=== PATIENT | female | born 1940 | race Caucasian/White ===

== ENCOUNTER 2018-09-09 12:01 | Inpatient (IN) ==
[2018-09-09 12:53] LABS: Apearance,Urine CLEAR (Clear); Bilirubin,Urine Negative (Negative); Blood, Urine Negative (Negative); Glucose,Urine (UA) Negative (Negative); Ketones,Urine Negative (Negative); Nitrite,Urine Negative (Negative); Protein,Urine Negative; RBC,Urine 1 /HPF (0-4); Squamous Epithelial Cell,Urine Occasional /HPF (0-10); Urine Color Yellow (Yellow); Urine Specific Gravity 1.013 (1.001-1.035); Urine Urobilinogen < 2.0 EU/DL (0.2-1.0)
[2018-09-09 13:06] LABS: Basophils % 0.4 % (0.0-0.8); Eosinophils # 0.1 10*3/uL (0.0-0.87); Eosinophils % 0.5 % (0.00-10.9); Hematocrit 37.5 VOL% (35.7-47.0); Hemoglobin 11.9 GM/DL (12.0-16.0); Immature Granulocytes % 0.4 %; Immature Granulocytes Absolute 0.04 #; Lymphocytes # 1.5 10*3/uL (1.4-4.0); Lymphocytes % 15.6 % (21.3-54.2); Mean Corpuscular HGB Conc 31.7 GM/DL (32-36); Mean Corpuscular Hemoglobin 28 PG (27-34); Mean Corpuscular Volume 87.8 FL (87-102); Mean Platelet Volume 11.9 FL (9.6-12.0); Monocytes # 0.5 10*3/uL (0.11-0.8); Monocytes % 5.2 % (1.7-12.7); Neutrophils # 7.7 10*3/uL (1.4-7.4); Neutrophils % 77.9 % (38.7-73.9); Platelet Count 163 T/CUMM (130-400); Red Blood Count 4.27 MC/CUMM (3.8-5.5); White Blood Count 9.9 T/CUMM (4-12)
[2018-09-09 13:13] LABS: INR 0.9
[2018-09-09 13:14] LABS: Barbiturates Screen,Urine Negative (Negative); Benzodiazepines Screen,Urine Negative (Negative); Cannabinoid Screen,Urine Negative (Negative); Opiate Screen,Urine Negative (Negative); Phencyclidine Screen,Urine Negative (Negative)
[2018-09-09 13:31] LABS: Alanine Aminotransferase 15 U/L (13-56); Albumin 3.6 G/DL (3.4-5.0); Alkaline Phosphatase 49 U/L (45-117); Aspartate Amino Transferase 17 U/L (0-37); Blood Urea Nitrogen 20 MG/DL (7-18); Calcium 8.8 MG/DL (8.5-10.1); Glucose 104 MG/DL (74-106); Osmolality,Calculated 279.5 MOS/KG (273-304); Sodium 139 MMOL/L (136-145); Total Protein 7.2 G/DL (6.4-8.3); Troponin I < 0.015 NG/ML (0.00-0.045)
[2018-09-09 14:49] LABS: Free T4 (Free Thyroxine) 1.07 NG/DL (0.76-1.46); Thyroid Stimulating Hormone 1.58 uIU/ml (0.358-3.74)
[2018-09-09] MEDS ORDERED: DOCUSATE SODIUM 100 MG CAPSULE PO PRN (15:05)
[2018-09-09] MEDS ORDERED: ZALEPLON 5 MG CAPSULE PO PRN (15:05)
[2018-09-09] MEDS ORDERED: ONDANSETRON 4 MG/2 ML VIAL IV PRN (15:05)
[2018-09-09] MEDS ORDERED: MAGNESIUM SULF RIDER 2 GM in PREMIX 1 EACH IV PRN ×2 (15:05→15:40)
[2018-09-09] MEDS ORDERED: MAGNESIUM SULF RIDER 4 GM in PREMIX 1 EACH IV PRN ×2 (15:05→15:40)
[2018-09-09] MEDS ORDERED: ACETAMINOPHEN 325 MG TABLET PO PRN (15:05)
[2018-09-09] MEDS ORDERED: diphenhydrAMINE CAP 25 MG CAPSULE PO PRN (15:05)
[2018-09-09] MEDS ORDERED: BISACODYL 5 MG TABLET PO PRN (15:05)
[2018-09-09] MEDS ORDERED: ENOXAPARIN 40 MG/0.4 ML SYRINGE SUBCUT ONE (15:32)
[2018-09-09] MEDS: SODIUM CHLORIDE 0.45% 1,000 ML IV SCH (17:29)
[2018-09-10] MEDS: SODIUM CHLORIDE 0.45% 1,000 ML IV SCH ×3 (00:56→18:59)
[2018-09-10 05:25] LABS: Basophils % 0.4 % (0.0-0.8); Eosinophils # 0.2 10*3/uL (0.0-0.87); Eosinophils % 2.1 % (0.00-10.9); Hematocrit 37.7 VOL% (35.7-47.0); Hemoglobin 11.9 GM/DL (12.0-16.0); Immature Granulocytes % 0.4 %; Immature Granulocytes Absolute 0.03 #; Lymphocytes # 3.7 10*3/uL (1.4-4.0); Lymphocytes % 44.4 % (21.3-54.2); Mean Corpuscular HGB Conc 31.6 GM/DL (32-36); Mean Corpuscular Hemoglobin 28 PG (27-34); Mean Corpuscular Volume 88.3 FL (87-102); Mean Platelet Volume 12.3 FL (9.6-12.0); Monocytes # 0.5 10*3/uL (0.11-0.8); Monocytes % 6.6 % (1.7-12.7); Neutrophils # 3.8 10*3/uL (1.4-7.4); Neutrophils % 46.1 % (38.7-73.9); Platelet Count 174 T/CUMM (130-400); Red Blood Count 4.27 MC/CUMM (3.8-5.5); Red Cell Distribution Width 13.2 % (9.3-17.3); White Blood Count 8.2 T/CUMM (4-12)
[2018-09-10 05:43] LABS: Albumin 3.5 G/DL (3.4-5.0); Calcium 8.8 MG/DL (8.5-10.1); Osmolality,Calculated 278.4 MOS/KG (273-304); Potassium 3.9 MMOL/L (3.5-5.1); Total Protein 7.1 G/DL (6.4-8.3)
[2018-09-10] MEDS: LEVOTHYROXINE 50 MCG TABLET PO SCH ×2 (06:40→10:07)
[2018-09-10] MEDS ORDERED: ceFAZolin 1,000 MG in SYRINGE 1 EACH IV ONE (08:01)
[2018-09-10] MEDS ORDERED: ceFAZolin 1,000 MG VIAL IRRIG ONE (08:01)
[2018-09-10] MEDS: ESTRADIOL 1 MG TABLET PO SCH (10:06)
[2018-09-10] MEDS: LISINOPRIL 10 MG TABLET PO SCH (10:07)
[2018-09-10] MEDS: PANTOPRAZOLE 40 MG TABLET PO SCH (10:07)
[2018-09-10] MEDS: CHOLECALCIFEROL 1,000 UNIT TABLET PO SCH (10:07)
[2018-09-10] MEDS ORDERED: diphenhydrAMINE CAP 25 MG CAPSULE PO ONE (15:00)
[2018-09-10] MEDS ORDERED: DIAZEPAM 5 MG TABLET PO ONE (15:00)
[2018-09-10] MEDS ORDERED: MAGNESIUM HYDROXIDE SUSP 30 ML UDCUP PO PRN (15:24)
[2018-09-10] MEDS ORDERED: HEPARIN/NACL 0.9% 2 UNITS/ML 500 ML IV ONE ×2 (15:56→16:03)
[2018-09-10] MEDS ORDERED: LIDOCAINE 1%/EPI INJ 20 ML VIAL ONE (15:56)
[2018-09-10] MEDS ORDERED: ceFAZolin 1,000 MG VIAL ONE (16:01)
[2018-09-10] MEDS ORDERED: MIDAZOLAM 2 MG/2 ML VIAL ONE (16:05)
[2018-09-10] MEDS ORDERED: fentaNYL 100 MCG/2 ML VIAL ONE (16:05)
[2018-09-11] MEDS: SODIUM CHLORIDE 0.45% 1,000 ML IV SCH ×2 (03:00→07:56)
[2018-09-11 04:30] LABS: Basophils % 0.4 % (0.0-0.8); Eosinophils # 0.2 10*3/uL (0.0-0.87); Hematocrit 31.6 VOL% (35.7-47.0); Hemoglobin 9.9 GM/DL (12.0-16.0); Immature Granulocytes % 0.4 %; Immature Granulocytes Absolute 0.03 #; Lymphocytes # 2.3 10*3/uL (1.4-4.0); Lymphocytes % 27.2 % (21.3-54.2); Mean Corpuscular HGB Conc 31.3 GM/DL (32-36); Mean Corpuscular Hemoglobin 28 PG (27-34); Mean Corpuscular Volume 88.3 FL (87-102); Mean Platelet Volume 12.2 FL (9.6-12.0); Monocytes # 0.6 10*3/uL (0.11-0.8); Monocytes % 6.7 % (1.7-12.7); Neutrophils # 5.4 10*3/uL (1.4-7.4); Neutrophils % 63.3 % (38.7-73.9); Platelet Count 132 T/CUMM (130-400); Red Blood Count 3.58 MC/CUMM (3.8-5.5); Red Cell Distribution Width 12.9 % (9.3-17.3); White Blood Count 8.5 T/CUMM (4-12)
[2018-09-11 04:37] LABS: Calcium 8.1 MG/DL (8.5-10.1); Osmolality,Calculated 280.1 MOS/KG (273-304); Potassium 3.7 MMOL/L (3.5-5.1)
[2018-09-11 04:38] LABS: Calcium 7.7 MG/DL (8.5-10.1); Osmolality,Calculated 278.3 MOS/KG (273-304); Potassium 3.6 MMOL/L (3.5-5.1)
[2018-09-11] MEDS: LEVOTHYROXINE 50 MCG TABLET PO SCH (06:35)
[2018-09-11] MEDS: LISINOPRIL 10 MG TABLET PO SCH (08:20)
[2018-09-11] MEDS: CHOLECALCIFEROL 1,000 UNIT TABLET PO SCH (08:20)
[2018-09-11] MEDS: PANTOPRAZOLE 40 MG TABLET PO SCH (08:20)
[2018-09-11] MEDS: ESTRADIOL 1 MG TABLET PO SCH (08:20)
[2018-09-11 09:15] VITALS: BP 108/54
== END 2018-09-11 11:06 | disposition home or self-care (01) | DRG 243 ==
LOC: N.ED 12:01 → N.EDINP 12:01 → N.TELEN 16:36
PROVIDERS: ADMIT Internal Medicine Interventional Cardiology; ATTEND Internal Medicine Interventional Cardiology